=== PATIENT | female | born 1935 | race Two or more races ===

== ENCOUNTER 2018-02-07 12:24 | Inpatient (IN) | payer OTHER, MEDICARE ==
[~2018-02-07] VITALS: Ht 157.5 cm; Wt 52.9 kg
[2018-02-07 12:28] VITALS: Ht 157.5 cm; Wt 52.9 kg
[2018-02-07 13:17] LABS: BASOPHIL % 0.3 % (0-2); PLATELET COUNT 290 x10^3mcL (130-400); RED CELL DISTRIBUTION WIDTH 13.8 % (11.5-14.5)
[2018-02-07 13:35] LABS: CARBON DIOXIDE 26.7 mmol/L (21-32); CHLORIDE SERUM 93 mmol/L (98-107); CREATININE SERUM 0.5 mg/dL (0.6-1.0); GLUCOSE SERUM 134 mg/dL (74-106); POTASSIUM SERUM 4.5 mmol/L (3.5-5.1); SODIUM SERUM 129 mmol/L (136-145)
[2018-02-07 13:39] LABS: ALBUMIN 3.7 g/dL (3.4-5.0); ALKALINE PHOSPHATASE 46 U/L (46-116); ALT/SGPT 11 U/L (14-59); AST/SGOT 11 U/L (15-37); BILIRUBIN TOTAL 0.64 mg/dL (0.20-1.00); TOTAL PROTEIN, SERUM 6.9 g/dL (6.4-8.2)
[2018-02-07 15:18] LABS: FREE THYROXINE INDEX 2.3 ug/dL (1.4-4.5)
[2018-02-07 15:21] LABS: T3 TOTAL 0.86 ng/mL
[2018-02-07 15:30] LABS: MAGNESIUM 1.8 mg/dL (1.8-2.4); PHOSPHOROUS 3.4 mg/dL (2.5-4.9)
[2018-02-07 15:50] VITALS: BP 191/79
[2018-02-07] MEDS ORDERED: ISOSORBIDE MONO30 MG PO (16:27)
[2018-02-07] MEDS ORDERED: LOSARTAN POTASS25 M1 PO (16:27)
[2018-02-07] MEDS ORDERED: SIMVASTATIN20 M1 PO (16:28)
[2018-02-07] MEDS ORDERED: GLIPIZIDE ER2.5 M1 PO (16:28)
[2018-02-07] MEDS ORDERED: METFORMIN HYDR500 M1 PO (16:28)
[2018-02-07] MEDS ORDERED: CARVEDILOL3.125 M1 PO (16:31)
[2018-02-07 18:30] VITALS: BP 184/82
[2018-02-07 19:55] VITALS: BP 145/78
[2018-02-07 20:10] VITALS: BP 140/70
[2018-02-07 21:12] VITALS: BP 138/84
[2018-02-08 00:31] LABS: microscopic required? NO
[2018-02-08 01:11] LABS: urine erythrocyte NEGATIVE (NEGATIVE)
[2018-02-08 05:28] VITALS: BP 144/68
[2018-02-08 06:36] LABS: BASOPHIL % 0.4 % (0-2); PLATELET COUNT 281 x10^3mcL (130-400); RED CELL DISTRIBUTION WIDTH 14.1 % (11.5-14.5)
[2018-02-08 06:38] LABS: CARBON DIOXIDE 26.3 mmol/L (21-32); CHLORIDE SERUM 99 mmol/L (98-107); CREATININE SERUM 0.6 mg/dL (0.6-1.0); GLUCOSE SERUM 95 mg/dL (74-106); POTASSIUM SERUM 4.8 mmol/L (3.5-5.1); SODIUM SERUM 132 mmol/L (136-145)
[2018-02-08 09:08] VITALS: BP 152/68
[2018-02-08 13:49] VITALS: BP 134/69
[2018-02-08 17:14] VITALS: BP 123/59
[2018-02-08 21:20] VITALS: BP 127/63
[2018-02-09] VITALS (7 sets, daily range): BP systolic 123–204; BP diastolic 62–229
[2018-02-09 07:04] LABS: CALCIUM 8.3 mg/dL (8.5-10.1); CHLORIDE SERUM 99 mmol/L (98-107); CREATININE SERUM 0.4 mg/dL (0.6-1.0); GLUCOSE SERUM 111 mg/dL (74-106); POTASSIUM SERUM 4.3 mmol/L (3.5-5.1); SODIUM SERUM 133 mmol/L (136-145)
[2018-02-09 07:05] LABS: BASOPHIL % 0.4 % (0-2); PLATELET COUNT 271 x10^3mcL (130-400)
== END 2018-02-09 21:42 | disposition home health service (06) | DRG 48 ==
LOC: ED 12:24 → DU 14:30
PROVIDERS: Emergency Medicine Emergency Medical Services; Family Medicine
DX: G90.9 Disorder of the autonomic nervous system, unspecified (principal); J18.9 Pneumonia, unspecified organism; E11.65 Type 2 diabetes mellitus with hyperglycemia; I11.0 Hypertensive heart disease with heart failure; I50.9 Heart failure, unspecified; E87.8 Other disorders of electrolyte and fluid balance, not elsewhere classified; M94.0 Chondrocostal junction syndrome [Tietze]; E87.1 Hypo-osmolality and hyponatremia; E78.5 Hyperlipidemia, unspecified; K21.9 Gastro-esophageal reflux disease without esophagitis; I25.10 Atherosclerotic heart disease of native coronary artery without angina pectoris; J93.9 Pneumothorax, unspecified; G89.29 Other chronic pain; M54.9 Dorsalgia, unspecified; W06.XXXA Fall from bed, initial encounter; Y93.89 Activity, other specified; Y92.89 Other specified places as the place of occurrence of the external cause; Y99.8 Other external cause status; E86.0 Dehydration; M71.21 Synovial cyst of popliteal space [Baker], right knee; I70.209 Unspecified atherosclerosis of native arteries of extremities, unspecified extremity; D64.9 Anemia, unspecified; E66.9 Obesity, unspecified; Z68.25 Body mass index [BMI] 25.0-25.9, adult
CPT/HCPCS: 82962; 83880; 84439; 85378; 97110-GP; 97116-GP; 97530-GP; J2405; J7030; Q0092